=== PATIENT | male | born 2000 | race Caucasian/White ===

== ENCOUNTER 2019-05-31 20:35 | Emergency (ER) | payer OTHER ==
[~2019-05-31] VITALS: Ht 172.7 cm; Wt 75.0 kg
[2019-05-31 20:51] VITALS: TEMP 98.5
[2019-05-31] MEDS ORDERED: CEPHALEXIN500 M1 PO (22:24)
[2019-05-31 23:01] VITALS: BP 125/90; PULSE 72
== END 2019-05-31 23:02 | disposition home or self-care (01) ==
LOC: COL.ER 20:35
DX: S56.129A Laceration of flexor muscle, fascia and tendon of unspecified finger at forearm level, initial encounter (principal); W26.8XXA Contact with other sharp object(s), not elsewhere classified, initial encounter
CPT/HCPCS: J0690